=== PATIENT | male | born 1960 | race Caucasian/White ===

== ENCOUNTER 2017-07-22 11:12 | Emergency (ER) | payer OTHER ==
[~2017-07-22] VITALS: Ht 177.8 cm; Wt 95.3 kg
[~2017-07-22 11:12] MED LIST: AMOX1TAB12 PO; INTESTINEX1 CA1 PO
[2017-07-22] MEDS ORDERED: LISINOPRIL20 MG (11:49)
== END 2017-07-22 17:34 | disposition home or self-care (01) ==
LOC: ER 11:12
DX: B34.9 Viral infection, unspecified (principal)